=== PATIENT | male | born 1965 | race Caucasian/White ===

== ENCOUNTER 2020-08-02 07:46 | Day surgery (SDC) | payer BC ==
[2020-07-30 15:18] LABS: Absolute Lymphocytes (CBC) 1.6 K/uL (0.7-4.9); Basophils % 1.2 % (0-1.3); Hematocrit 38.3 % (39.6-49.0); Lymphocytes % 26.9 % (15.3-44.8); MPV 8.3 fL (7.6-11.3); RBC Red Blood Cell Count 4.12 M/uL (4.33-5.43)
--- NOTE | 2020-07-30 15:20 | RAD REPORT ---
EXAM DESCRIPTION: Aneudy Jimenez (2 Views)07/30/2020 2:56 pm CLINICAL HISTORY: Preop for umbilical hernia surgery COMPARISON: 2018 FINDINGS: The lungs appear clear of acute infiltrate. The heart is normal size IMPRESSION: No acute abnormalities displayed
[2020-07-30 15:30] LABS: BUN Blood Urea Nitrogen 6 mg/dL (7-18); Bicarbonate 28 mmol/L (21-32); Glucose Level 98 mg/dL (74-106); Potassium 3.9 mmol/L (3.5-5.1); Sodium Level 134 mmol/L (136-145)
--- NOTE | 2020-07-31 18:06 | EKG ---
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
[~2020-08-02 07:46] MED LIST: FENTANYL CITR 100 MCG/2 ML ONE; KETOROLAC 30 MG/ML INJ ONE; LIDOCAINE 2% MPF 5 ML VIAL ONE; MIDAZOLAM HCL 2 MG/2 ML INJ ONE; ONDANSETRON 4 MG/2 ML VIAL ONE; ROCURONIUM 50 MG/5 ML VIAL IV ONE; dexAMETHasone 4 MG/ML VIAL ONE; propofoL 200 MG/20 ML VIAL IV ONE
[2020-08-02] MEDS ORDERED: Ringers Lactate 1,000 ML IV ONE ×2 (08:15→10:13)
[2020-08-02] MEDS: CEFAZOLIN/SWI 1gm 1 GM/10 ML SYR ONE ×2 (09:07→09:10)
[2020-08-02] MEDS ORDERED: GLYCOPYRROLATE 0.2 MG/ML SYR ONE ×2 (10:07→10:37)
[2020-08-02] MEDS ORDERED: NEOSTIGMINE 1 MG/ML -5 ML ONE ×2 (10:08→10:37)
[2020-08-02] MEDS ORDERED: FENTANYL CITR 100 MCG/2 ML ONE ×3 (10:13→10:37)
[2020-08-02] MEDS: HYDROMORPHONE HCL 1 MG/ML INJ ONE ×2 (10:26→10:31)
[2020-08-02] MEDS ORDERED: ROCURONIUM 50 MG/5 ML VIAL IV ONE (10:37)
[2020-08-02] MEDS ORDERED: ONDANSETRON 4 MG/2 ML VIAL ONE (10:37)
[2020-08-02] MEDS ORDERED: MIDAZOLAM HCL 2 MG/2 ML INJ ONE (10:37)
[2020-08-02] MEDS ORDERED: dexAMETHasone 4 MG/ML VIAL ONE (10:37)
[2020-08-02] MEDS ORDERED: KETOROLAC 30 MG/ML INJ ONE (10:37)
[2020-08-02] MEDS ORDERED: LIDOCAINE 2% MPF 5 ML VIAL ONE (10:37)
[2020-08-02] MEDS ORDERED: propofoL 200 MG/20 ML VIAL IV ONE (10:37)
[2020-08-02] MEDS ORDERED: PROMETHAZINE INJ 25 MG/ML AMP ONE (10:42)
[2020-08-02 10:58] VITALS: TEMP 97.6; O2SAT 97
--- NOTE | 2020-08-02 11:27 | OP ---
Date of Procedure: 08/02/2020 Surgeon: Rd Brown MD Stunt Double: FLORENTIN Merrill. Preoperative Diagnosis: Incarcerated umbilical hernia. Postoperative Diagnosis: Incarcerated umbilical hernia. Procedure: Laparoscopic repair of incarcerated umbilical hernia. Estimated Blood Loss: Minimal. Specimen: Hernia sac. Finding: As above. Anesthesia: General. Complications: None. The patient tolerated the procedure in stable condition, taken to Recovery in good general condition. Procedure In Detail: Patient was brought to the OR and placed in supine position and general anesthe abel begun. Patient was prepped and draped in the usual sterile fashion. Marcaine 0.5% was infiltrat ed locally. 15 blade was used to make a 1 cm left groin incision. Subcutaneous tissue was divided. Fascia was identified and divided. #1 Vicryl stay suture was placed. Peritoneal cavity was entered with sharp and blunt dissection. A 12-mm trocar was placed into the peritoneal cavity under direct vision. Pneumoperitoneum was established and then 5-mm trocar was placed in the left lower quadrant. Laparoscopy reveals a relatively small umbilical hernia with preperitoneal fat incarcerated in it. A 3 cm incision was made over the hernia itself. Subcutaneous tissue was divided. Hernia sac and c ontents were excised and sent to Pathology as specimen. Approximately 2.5 cm defect remained. A Zenon tralex small size mesh was placed and then #1 PDS used to secure the mesh to the peritoneal surface a s well as close the fascial defect. Then pneumoperitoneum was reestablished and the mesh secured wit h . Complete coverage of the hernia defect accomplished. Then all trocars were removed un ledy direct vision. Stay sutures were tied to each other and reapproximated the fascial defect. Subc utaneous wounds were irrigated. Bleeding was controlled with cautery. 3-0 chromic was used to appro ximate the subcutaneous tissue and close the skin. Sterile dressing was applied. The patient was aw akened and taken to Recovery in good general condition. Discharge Note: The patient will go to Day Surgery and home when stable. Disposition: Home. Condition: Stable. Discharge Instructions: Resume home medications and diet. Activity as tolerated. No heavy lifting. Remove outer dressing in 2 days. Shower. Keep wound clean and dry. Keep Steri-Strips on at all t imes. Tylenol No. 3 one tablet p.o. q.4 p.r.n. pain. Abdominal binder, incentive spirometry as orde red. Follow up in my office in a week. Call for appointment. GREGORY/NAYE Voice ID: [id number] Report ID: [id number]
[2020-08-02] MEDS ORDERED: HYDROCODONE/APAP 7.5/325 MG TAB ONE (11:36)
[2020-08-02 13:03] VITALS: BP 128/81
== END 2020-08-02 12:30 | disposition home or self-care (01) ==
LOC: OR 07:46
PROVIDERS: ATTEND Surgery
PROC: 0WUF4JZ Supplement Abdominal Wall with Synthetic Substitute, Percutaneous Endoscopic Approach (ICD-10-PCS; principal; 2020-08-02 09:00)
DX: K42.0 Umbilical hernia with obstruction, without gangrene (principal); K21.9 Gastro-esophageal reflux disease without esophagitis; Z72.0 Tobacco use; Z86.73 Personal history of transient ischemic attack (TIA), and cerebral infarction without residual deficits; Z20.828 Contact with and (suspected) exposure to other viral communicable diseases
CPT/HCPCS: 93005; 85025; 80048; 36415; 88302; 71046; 49653; U0002; J2704; J1100 ×2; J2550; J2250 ×2; J3010 ×3; J1170; J2710 ×2; J0690; J7120 ×2; J2405 ×2